=== PATIENT | female | born 1975 | race Two or more races ===

== ENCOUNTER 2021-01-11 17:12 | Emergency (ER) | payer MEDICAID ==
[~2021-01-11] VITALS: Ht 154.9 cm; Wt 77.0 kg
[2021-01-11 17:34] VITALS: BP 209/113
== END 2021-01-11 18:31 | disposition home or self-care (01) ==
LOC: ER 17:12
DX: S20.212A Contusion of left front wall of thorax, initial encounter (principal); E11.9 Type 2 diabetes mellitus without complications; E78.00 Pure hypercholesterolemia, unspecified; I10 Essential (primary) hypertension; W01.0XXA Fall on same level from slipping, tripping and stumbling without subsequent striking against object, initial encounter; Y93.9 Activity, unspecified; Y92.9 Unspecified place or not applicable; Z88.0 Allergy status to penicillin; Z89.9 Acquired absence of limb, unspecified; Z93.0 Tracheostomy status
CPT/HCPCS: 93005; 99283

== ENCOUNTER 2021-06-14 16:28 | Inpatient (IN) | payer MEDICAID ==
[~2021-06-14] VITALS: Ht 154.9 cm; Wt 76.7 kg
[2021-06-14] MEDS ORDERED: VANCOMYCIN 1 G PREMIX 200 ML IV ONE (17:30)
[2021-06-14] MEDS ORDERED: PIPERACILLIN/TAZ 3.375G PREMIX 50 ML IV ONE (17:30)
[2021-06-14 17:45] LABS: BASOPHILS % 0.2 % (0.0-2.0); EOSINOPHILS % 0.2 % (0.0-5.0); HEMATOCRIT. 26.3 % (36.0-48.0); LYMPHOCYTES % 14.9 % (20.0-50.0); MEAN CORPUSCULAR HEMOGLOBIN 34.8 pg (28.0-32.0); MEAN CORPUSCULAR VOLUME 102.4 fL (81.0-99.0); MEAN PLATELET VOLUME 7.5 fl (7.4-10.4); NEUTROPHILS % 75.7 % (40.0-76.0); PLATELET 210 x1000/uL (130-400); RED BLOOD CELL COUNT 2.57 mill/uL (4.2-5.4); RED CELL DISTRIBUTION WIDTH 13.1 % (11.6-14.6)
[2021-06-14 17:50] LABS: CHLORIDE 103 mEq/L (98-107)
[2021-06-14 17:53] LABS: INR 1.2; PROTHROMBIN TIME 12.4 sec (9.6-11.0)
[2021-06-14] MEDS ORDERED: POTASSIUM CHLORIDE 20MEQ TABLET SR PO NR (18:30)
[2021-06-14] MEDS ORDERED: SODIUM CHLORIDE 0.9% 1000ML BAG (SEPSIS BOLUS) IV ONE (20:00)
[2021-06-14] MEDS ORDERED: SODIUM CHLORIDE 0.9% IV SCH (20:15)
[2021-06-14] MEDS ORDERED: HYDROCODONE/ACETAMINOPHEN 5/325MG TABLET PO PRN (23:00)
[2021-06-14] MEDS ORDERED: DEXTROSE 50% WATER 50ML SYRINGE IV PRN (23:00)
[2021-06-14] MEDS ORDERED: NALOXONE HCL 0.4MG/ML VIAL IV PRN (23:15)
[2021-06-14 23:28] VITALS: BP 127/85
[2021-06-14] MEDS ORDERED: PNEUMOCOCCAL 23-VAL P-SAC VAC 0.5 ML IM ONE (23:30)
[2021-06-15] VITALS (7 sets, daily range): BP systolic 105–126; BP diastolic 61–83
[2021-06-15] MEDS ORDERED: AMLO2.5T45 MT
[2021-06-15] MEDS ORDERED: METO-539 PO
[2021-06-15] MEDS ORDERED: ASPI-1497 PO
[2021-06-15] MEDS ORDERED: BENA10TA74 PO
[2021-06-15] MEDS ORDERED: SIMV5TAB58 MT
[2021-06-15] MEDS ORDERED: GABA-529 MT
[2021-06-15] MEDS ORDERED: VANCOMYCIN 1 G PREMIX 200 ML IV SCH ×2 (02:30→12:00)
[2021-06-15] MEDS: PIPERACILLIN/TAZOBACTAM 3.375 G in DEXTROSE 5% WATER 50 ML IV SCH ×3 (05:44→22:32)
[2021-06-15] MEDS ORDERED: INFLUENZA VACCINE 05/PF 0.5 ML SYRINGE IM ONE (06:00)
[2021-06-15] MEDS: BLOOD SUGAR DIAGNOSTIC STRIP TEST SCH ×4 (06:29→20:02)
[2021-06-15] MEDS: INSULIN LISPRO 100 UNITS/ML SUBCUT SCH ×4 (06:29→20:02)
[2021-06-15 06:49] LABS: BASOPHILS % 0.4 % (0.0-2.0); EOSINOPHILS % 0.9 % (0.0-5.0); HEMATOCRIT. 24.8 % (36.0-48.0); HEMOGLOBIN. 8.4 g/dL (12.0-16.0); LYMPHOCYTES % 19.3 % (20.0-50.0); MEAN CORPUSCULAR HEMOGLOBIN 35.4 pg (28.0-32.0); MEAN CORPUSCULAR VOLUME 104.9 fL (81.0-99.0); MONOCYTES % 9.7 % (2.0-8.0); NEUTROPHILS % 69.7 % (40.0-76.0); PLATELET 171 x1000/uL (130-400); RED BLOOD CELL COUNT 2.37 mill/uL (4.2-5.4); RED CELL DISTRIBUTION WIDTH 13.3 % (11.6-14.6)
[2021-06-15] MEDS: AMLODIPINE 10MG TABLET PO SCH (08:57)
[2021-06-15] MEDS: ASPIRIN 81MG TABLET PO SCH (08:57)
[2021-06-15] MEDS: GABAPENTIN 300MG CAPSULE PO SCH ×3 (08:58→16:47)
[2021-06-15] MEDS: METOPROLOL TARTRATE 50MG TABLET PO SCH ×2 (08:58→16:43)
[2021-06-15] MEDS ORDERED: PNEUMOCOCCAL 23-VAL P-SAC VAC 0.5 ML IM ONE (09:00)
[2021-06-15] MEDS ORDERED: LIDOCAINE HCL 1% 20ML VIAL (Pyxis) INJ ONE (09:23)
[2021-06-15] MEDS: VANCOMYCIN 750 MG PREMIX 150 ML IV SCH (12:34)
[2021-06-15] MEDS ORDERED: IOHEXOL-350 100 ML BOTTLE ONE (17:10)
[2021-06-15] MEDS: ATORVASTATIN CALCIUM 40MG TABLET PO SCH (20:16)
[2021-06-16 04:00] VITALS: BP 91/49
[2021-06-16] MEDS: VANCOMYCIN 750 MG PREMIX 150 ML IV SCH (04:09)
[2021-06-16] MEDS: PIPERACILLIN/TAZOBACTAM 3.375 G in DEXTROSE 5% WATER 50 ML IV SCH ×3 (05:37→21:02)
[2021-06-16] MEDS: BLOOD SUGAR DIAGNOSTIC STRIP TEST SCH ×4 (05:57→20:59)
[2021-06-16] MEDS: INSULIN LISPRO 100 UNITS/ML SUBCUT SCH ×4 (06:15→21:00)
[2021-06-16 08:00] VITALS: BP 94/62
[2021-06-16] MEDS: AMLODIPINE 10MG TABLET PO SCH (08:30)
[2021-06-16] MEDS: ASPIRIN 81MG TABLET PO SCH (08:30)
[2021-06-16] MEDS: METOPROLOL TARTRATE 50MG TABLET PO SCH ×2 (08:30→17:09)
[2021-06-16] MEDS: GABAPENTIN 300MG CAPSULE PO SCH ×3 (08:30→17:09)
[2021-06-16 12:00] VITALS: BP 103/58
[2021-06-16 16:00] VITALS: BP 121/67
[2021-06-16 17:32] LABS: CLARITY URINE CLOUDY (CLEAR); COLOR URINE YELLOW (YELLOW); KETONES URINE NEGATIVE (NEGATIVE); LEUKOCYTE ESTERASE URINE 3+ (NEGATIVE); NITRITE URINE NEGATIVE (NEGATIVE); OCCULT BLOOD URINE TRACE (NEGATIVE); PH URINE 6.5 (4.5-8.0); PROTEIN URINE TRACE (NEGATIVE); SPECIFIC GRAVITY URINE 1.016 (1.005-1.030); UROBILINOGEN URINE 0.2 E.U./dL (0.2-1.0)
[2021-06-16 20:00] VITALS: BP 137/80
[2021-06-16] MEDS ORDERED: POTASSIUM CHLORIDE 20MEQ TABLET SR PO NR (20:00)
[2021-06-16] MEDS: ATORVASTATIN CALCIUM 40MG TABLET PO SCH (21:01)
[2021-06-17] VITALS: BP 99/60
[2021-06-17] MEDS: VANCOMYCIN 750 MG PREMIX 150 ML IV SCH ×3 (00:08→23:41)
[2021-06-17 04:00] VITALS: BP 111/59
[2021-06-17] MEDS: PIPERACILLIN/TAZOBACTAM 3.375 G in DEXTROSE 5% WATER 50 ML IV SCH ×3 (05:12→21:11)
[2021-06-17] MEDS: BLOOD SUGAR DIAGNOSTIC STRIP TEST SCH ×4 (05:42→21:10)
[2021-06-17] MEDS: INSULIN LISPRO 100 UNITS/ML SUBCUT SCH ×4 (06:13→21:00)
[2021-06-17 08:00] VITALS: BP 143/92
[2021-06-17] MEDS: ASPIRIN 81MG TABLET PO SCH (09:34)
[2021-06-17] MEDS: METOPROLOL TARTRATE 50MG TABLET PO SCH ×2 (09:35→17:23)
[2021-06-17] MEDS: GABAPENTIN 300MG CAPSULE PO SCH ×3 (09:35→17:23)
[2021-06-17] MEDS: AMLODIPINE 10MG TABLET PO SCH (09:36)
[2021-06-17 12:00] VITALS: BP 124/68
[2021-06-17 14:42] LABS: TOTAL IRON BINDING CAPACITY 282 ug/dL (250-450)
[2021-06-17 16:00] VITALS: BP 139/82
[2021-06-17 20:00] VITALS: BP 103/58
[2021-06-17] MEDS: ATORVASTATIN CALCIUM 40MG TABLET PO SCH (21:10)
[2021-06-18] VITALS: BP 103/57
[2021-06-18 04:00] VITALS: BP 106/59
[2021-06-18] MEDS: PIPERACILLIN/TAZOBACTAM 3.375 G in DEXTROSE 5% WATER 50 ML IV SCH ×3 (05:28→20:31)
[2021-06-18] MEDS: BLOOD SUGAR DIAGNOSTIC STRIP TEST SCH ×4 (07:20→20:32)
[2021-06-18] MEDS: INSULIN LISPRO 100 UNITS/ML SUBCUT SCH ×4 (07:50→20:33)
[2021-06-18 08:00] VITALS: BP 113/72
[2021-06-18] MEDS: ASPIRIN 81MG TABLET PO SCH (10:10)
[2021-06-18] MEDS: AMLODIPINE 10MG TABLET PO SCH (10:11)
[2021-06-18] MEDS: METOPROLOL TARTRATE 50MG TABLET PO SCH ×2 (10:11→19:10)
[2021-06-18] MEDS: GABAPENTIN 300MG CAPSULE PO SCH ×3 (10:11→19:09)
[2021-06-18 12:00] VITALS: BP 138/90
[2021-06-18] MEDS: VANCOMYCIN 750 MG PREMIX 150 ML IV SCH ×2 (13:56→23:16)
[2021-06-18 16:00] VITALS: BP 110/66
[2021-06-18 20:00] VITALS: BP 116/76
[2021-06-18] MEDS: ATORVASTATIN CALCIUM 40MG TABLET PO SCH (20:31)
[2021-06-19] VITALS: BP 97/63
[2021-06-19 04:00] VITALS: BP 104/66
[2021-06-19] MEDS: BLOOD SUGAR DIAGNOSTIC STRIP TEST SCH ×2 (06:25→11:30)
[2021-06-19] MEDS: INSULIN LISPRO 100 UNITS/ML SUBCUT SCH ×2 (06:25→11:32)
[2021-06-19 08:00] VITALS: BP 139/98
[2021-06-19] MEDS: AMLODIPINE 10MG TABLET PO SCH (09:06)
[2021-06-19] MEDS: ASPIRIN 81MG TABLET PO SCH (09:07)
[2021-06-19] MEDS: GABAPENTIN 300MG CAPSULE PO SCH ×2 (09:07→12:39)
[2021-06-19] MEDS: METOPROLOL TARTRATE 50MG TABLET PO SCH (09:07)
[2021-06-19 12:00] VITALS: BP 140/94
[2021-06-19 14:30] VITALS: BP_SYST 140; BP_SYST 150; BP_DIAS 71; BP_DIAS 84
[2021-06-19] MEDS ORDERED: VANCOMYCIN 1 G PREMIX 200 ML IV SCH (18:00)
== END 2021-06-19 15:52 | disposition home health service (06) | DRG 344 ==
LOC: ER 16:28 → 7EST 19:59 → EDBEDREQTM 20:02 → EDBEDREQ 20:02 → ENRESERV 20:12 → 6EST 06-17 18:33
PROVIDERS: ADMIT Internal Medicine; ATTEND Internal Medicine
PROC: 02HV33Z Insertion of Infusion Device into Superior Vena Cava, Percutaneous Approach (ICD-10-PCS; principal; 2021-06-15)
PROC: B548ZZA Ultrasonography of Superior Vena Cava, Guidance (ICD-10-PCS; 2021-06-15)
PROC: B5181ZA Fluoroscopy of Superior Vena Cava using Low Osmolar Contrast, Guidance (ICD-10-PCS; 2021-06-15)
DX: E11.69 Type 2 diabetes mellitus with other specified complication (principal); M86.172 Other acute osteomyelitis, left ankle and foot; N17.0 Acute kidney failure with tubular necrosis; E44.0 Moderate protein-calorie malnutrition; E11.621 Type 2 diabetes mellitus with foot ulcer; E11.22 Type 2 diabetes mellitus with diabetic chronic kidney disease; L97.529 Non-pressure chronic ulcer of other part of left foot with unspecified severity; B95.62 Methicillin resistant Staphylococcus aureus infection as the cause of diseases classified elsewhere; D64.9 Anemia, unspecified; E11.51 Type 2 diabetes mellitus with diabetic peripheral angiopathy without gangrene; E66.9 Obesity, unspecified; E78.00 Pure hypercholesterolemia, unspecified; Z20.822 Contact with and (suspected) exposure to COVID-19; E78.5 Hyperlipidemia, unspecified; E87.6 Hypokalemia; I12.9 Hypertensive chronic kidney disease with stage 1 through stage 4 chronic kidney disease, or unspecified chronic kidney disease; N18.9 Chronic kidney disease, unspecified; Z79.4 Long term (current) use of insulin; Z79.82 Long term (current) use of aspirin; Z91.19 Patient's noncompliance with other medical treatment and regimen; Z89.422 Acquired absence of other left toe(s); Z88.0 Allergy status to penicillin; Z68.31 Body mass index [BMI] 31.0-31.9, adult; Z79.899 Other long term (current) drug therapy
CPT/HCPCS: 36415; 36573; 71045; 73630; 75635; 80048; 80053; 80061; 80202; 81003; 82728; 82962; 83036; 83540; 83550; 83605; 84145; 85025; 86850; 86900; 87070; 87186; 87426; 90686; 90732; 93005; 93923; 97161; 99291; C1725; J1815; J2543; J3370; J3490; J7060; Q9967

== ENCOUNTER 2021-06-25 13:34 | Emergency (ER) | payer MEDICAID ==
[~2021-06-25] VITALS: Ht 165.1 cm; Wt 75.0 kg
[~2021-06-25 13:34] MED LIST: AMLO2.5T45 MT; ASPI-1497 PO; BENA10TA74 PO; GABA-529 MT; METO-539 PO; SIMV5TAB58 MT
[2021-06-25 13:49] VITALS: BP 134/91
== END 2021-06-25 22:10 | disposition left against medical advice (07) ==
LOC: ER 13:34
DX: Z53.21 Procedure and treatment not carried out due to patient leaving prior to being seen by health care provider (principal)

== ENCOUNTER 2021-06-30 10:03 | Emergency (ER) | payer MEDICAID ==
[~2021-06-30] VITALS: Ht 160 cm; Wt 73.0 kg
[2021-06-30] MEDS ORDERED: VANCOMYCIN 1 G PREMIX 200 ML IV SCH (14:30)
[2021-06-30 17:27] VITALS: BP 129/84
== END 2021-06-30 17:28 | disposition home or self-care (01) ==
LOC: ER 10:15
DX: T82.524A Displacement of infusion catheter, initial encounter (principal); Y84.8 Other medical procedures as the cause of abnormal reaction of the patient, or of later complication, without mention of misadventure at the time of the procedure; M86.9 Osteomyelitis, unspecified; Y92.9 Unspecified place or not applicable; E11.9 Type 2 diabetes mellitus without complications; I10 Essential (primary) hypertension; Z88.0 Allergy status to penicillin; Z93.0 Tracheostomy status
CPT/HCPCS: 96365; 99284; J3370

== ENCOUNTER 2021-07-02 09:05 | Emergency (ER) | payer MEDICAID ==
[~2021-07-02] VITALS: Ht 160 cm; Wt 73.0 kg
[2021-07-02] MEDS ORDERED: LIDOCAINE HCL 1% 30ML VIAL (10MG/ML) ONE (13:31)
[2021-07-02 14:35] VITALS: BP 142/96
== END 2021-07-02 14:36 | disposition home or self-care (01) ==
LOC: ER 09:05
DX: Z46.82 Encounter for fitting and adjustment of non-vascular catheter (principal); I10 Essential (primary) hypertension; E11.9 Type 2 diabetes mellitus without complications; E78.00 Pure hypercholesterolemia, unspecified; Z93.0 Tracheostomy status; Z88.0 Allergy status to penicillin
CPT/HCPCS: 36573; 81025; 87426; 99284; C1725; J3490; Z7610

== ENCOUNTER 2021-08-07 21:04 | Inpatient (IN) | payer MEDICAID ==
[~2021-08-07] VITALS: Ht 157.5 cm; Wt 82.1 kg
[2021-08-07 23:08] LABS: BASOPHILS % 0.5 % (0.0-2.0); CHLORIDE 103 mEq/L (98-107); HEMOGLOBIN. 10.3 g/dL (12.0-16.0); LYMPHOCYTES % 33.3 % (20.0-50.0); MEAN CORPUSCULAR VOLUME 105.1 fL (81.0-99.0); MEAN PLATELET VOLUME 7.5 fl (7.4-10.4); NEUTROPHILS % 58.2 % (40.0-76.0); PLATELET 232 x1000/uL (130-400); RED BLOOD CELL COUNT 2.95 mill/uL (4.2-5.4); RED CELL DISTRIBUTION WIDTH 16.1 % (11.6-14.6)
[2021-08-07] MEDS ORDERED: POTASSIUM BICARB/CIT ACID 25 MEQ TABLET.EFF PO ONE (23:30)
[2021-08-07] MEDS ORDERED: CEFEPIME 1,000 MG in DEXTROSE 5% WATER 50 ML IV SCH (23:30)
[2021-08-07] MEDS ORDERED: KCL 10MEQ/50ML PREMIX 50 ML IV ONE (23:30)
[2021-08-07] MEDS ORDERED: MAGNESIUM 2 G PREMIX 50 ML IV ONE (23:30)
[2021-08-07] MEDS ORDERED: SODIUM CHLORIDE 0.9% 1000ML BAG (SEPSIS BOLUS) IV ONE (23:30)
[2021-08-08] MEDS ORDERED: KCL 10MEQ/50ML PREMIX 50 ML IV SCH (01:00)
[2021-08-08 01:42] LABS: CLARITY URINE CLOUDY (CLEAR); COLOR URINE YELLOW (YELLOW); KETONES URINE TRACE (NEGATIVE); LEUKOCYTE ESTERASE URINE 1+ (NEGATIVE); NITRITE URINE NEGATIVE (NEGATIVE); OCCULT BLOOD URINE TRACE (NEGATIVE); PH URINE 5.5 (4.5-8.0); PROTEIN URINE 1+ (NEGATIVE); SPECIFIC GRAVITY URINE 1.021 (1.005-1.030); UROBILINOGEN URINE 0.2 E.U./dL (0.2-1.0)
[2021-08-08 03:30] VITALS: BP 92/62
[2021-08-08] MEDS ORDERED: ONDANSETRON HCL 4MG/2ML INJ IV PRN (04:45)
[2021-08-08] MEDS ORDERED: ZOLPIDEM TARTRATE 5MG TABLET PO PRN (04:45)
[2021-08-08] MEDS ORDERED: NALOXONE HCL 0.4MG/ML VIAL IV PRN (05:45)
[2021-08-08] MEDS: HYDROCODONE/ACETAMINOPHEN 5/325MG TABLET PO PRN ×2 (06:12→21:56)
[2021-08-08] MEDS: PANTOPRAZOLE 40MG DR TABLET PO SCH (06:14)
[2021-08-08 06:44] LABS: BASOPHILS % 0.3 % (0.0-2.0); EOSINOPHILS % 1.2 % (0.0-5.0); HEMATOCRIT. 29.5 % (36.0-48.0); HEMOGLOBIN. 10.1 g/dL (12.0-16.0); LYMPHOCYTES % 16.6 % (20.0-50.0); MEAN CORPUSCULAR VOLUME 105.1 fL (81.0-99.0); MEAN PLATELET VOLUME 7.5 fl (7.4-10.4); MONOCYTES % 5.2 % (2.0-8.0); NEUTROPHILS % 76.7 % (40.0-76.0); PLATELET 189 x1000/uL (130-400); RED BLOOD CELL COUNT 2.81 mill/uL (4.2-5.4); RED CELL DISTRIBUTION WIDTH 16.1 % (11.6-14.6)
[2021-08-08 08:00] VITALS: BP 100/59
[2021-08-08] MEDS ORDERED: POTASSIUM CHLORIDE 20MEQ TABLET SR PO SCH ×3 (10:00→16:00)
[2021-08-08] MEDS: GABAPENTIN 100MG CAPSULE PO SCH ×3 (10:08→17:50)
[2021-08-08] MEDS: ASPIRIN 81MG TABLET PO SCH (10:08)
[2021-08-08 12:00] VITALS: BP 99/59
[2021-08-08] MEDS ORDERED: MAGNESIUM 2 G PREMIX 50 ML IV NR (13:30)
[2021-08-08 16:00] VITALS: BP 90/49
[2021-08-08 20:00] VITALS: BP 109/65
[2021-08-08] MEDS: ATORVASTATIN CALCIUM 10MG TABLET PO SCH (21:27)
[2021-08-09] VITALS: BP 94/55
[2021-08-09 04:00] VITALS: BP 110/69
[2021-08-09] MEDS: PANTOPRAZOLE 40MG DR TABLET PO SCH (06:51)
[2021-08-09 07:29] LABS: BASOPHILS % 0.3 % (0.0-2.0); EOSINOPHILS % 2.5 % (0.0-5.0); HEMATOCRIT. 24.9 % (36.0-48.0); HEMOGLOBIN. 8.3 g/dL (12.0-16.0); LYMPHOCYTES % 22.7 % (20.0-50.0); MEAN CORPUSCULAR HEMOGLOBIN 35.5 pg (28.0-32.0); MEAN PLATELET VOLUME 7.6 fl (7.4-10.4); NEUTROPHILS % 69.5 % (40.0-76.0); PLATELET 157 x1000/uL (130-400); RED BLOOD CELL COUNT 2.35 mill/uL (4.2-5.4); RED CELL DISTRIBUTION WIDTH 16.1 % (11.6-14.6)
[2021-08-09 08:00] VITALS: BP 105/65
[2021-08-09 08:15] LABS: PHOSPHORUS 1.7 mg/dL (2.5-4.9)
[2021-08-09] MEDS: GABAPENTIN 100MG CAPSULE PO SCH ×3 (08:59→17:35)
[2021-08-09] MEDS: ASPIRIN 81MG TABLET PO SCH (08:59)
[2021-08-09 12:00] VITALS: BP 137/84
[2021-08-09] MEDS ORDERED: VANCOMYCIN 750 MG PREMIX 150 ML IV SCH (12:00)
[2021-08-09] MEDS ORDERED: MAGNESIUM 2 G PREMIX 50 ML IV NR (13:00)
[2021-08-09] MEDS ORDERED: POTASSIUM PHOS,M-BASIC-D-BASIC 20 MMOL in DEXT 5% WATER 243.3333 ML IV NR (13:00)
[2021-08-09] MEDS ORDERED: POTASSIUM-SODIUM PHOSPHATE POWDER PACKET PO NR (14:36)
[2021-08-09 16:00] VITALS: BP 119/65
[2021-08-09 20:00] VITALS: BP 150/100
[2021-08-09] MEDS: ATORVASTATIN CALCIUM 10MG TABLET PO SCH (20:56)
[2021-08-10] VITALS: BP 141/72
[2021-08-10 05:27] VITALS: BP 121/74
[2021-08-10 08:00] VITALS: BP_SYST 132; BP_DIAS 66; BP_DIAS 82
[2021-08-10] MEDS ORDERED: FAMOTIDINE 20MG TABLET PO SCH (09:00)
[2021-08-10] MEDS: GABAPENTIN 100MG CAPSULE PO SCH ×2 (10:00→15:08)
[2021-08-10] MEDS: ASPIRIN 81MG TABLET PO SCH (10:00)
[2021-08-10 11:25] VITALS: BP 137/80
[2021-08-10 11:53] LABS: HEMATOCRIT 25.4 % (36.0-48.0); HEMOGLOBIN 8.4 g/dL (12.0-16.0); MEAN CORPUSCULAR HEMOGLOBIN 35.8 pg (28.0-32.0); MEAN CORPUSCULAR VOLUME 107.7 fL (81.0-99.0); PLATELET 156 x1000/uL (130-400); RED BLOOD CELL COUNT 2.36 mill/uL (4.2-5.4); RED CELL DISTRIBUTION WIDTH 16.4 % (11.6-14.6)
[2021-08-10] MEDS ORDERED: VANCOMYCIN 1 G PREMIX 200 ML IV SCH (14:00)
[2021-08-10 14:44] VITALS: BP 137/80
== END 2021-08-10 16:15 | disposition home health service (06) | DRG 425 ==
LOC: ER 21:04 → 6WST 08-08 01:41 → EDBEDREQDT 08-08 01:43 → EDBEDREQTM 08-08 01:43 → EDBEDREQ 08-08 01:43 → ENRESERV 08-08 02:25
PROVIDERS: ADMIT Internal Medicine; ATTEND Internal Medicine
DX: E87.6 Hypokalemia (principal); N17.0 Acute kidney failure with tubular necrosis; E44.0 Moderate protein-calorie malnutrition; L97.509 Non-pressure chronic ulcer of other part of unspecified foot with unspecified severity; M86.9 Osteomyelitis, unspecified; E11.621 Type 2 diabetes mellitus with foot ulcer; D64.9 Anemia, unspecified; K52.9 Noninfective gastroenteritis and colitis, unspecified; E11.69 Type 2 diabetes mellitus with other specified complication; E66.9 Obesity, unspecified; E78.5 Hyperlipidemia, unspecified; E83.42 Hypomagnesemia; I10 Essential (primary) hypertension; Z79.899 Other long term (current) drug therapy; Z79.82 Long term (current) use of aspirin; Z71.3 Dietary counseling and surveillance; Z88.0 Allergy status to penicillin; Z68.33 Body mass index [BMI] 33.0-33.9, adult
CPT/HCPCS: 36415; 71045; 80048; 80053; 80202; 81003; 82962; 83605; 83735; 83880; 84100; 84145; 84484; 85025; 85027; 93005; 99285; J0692; J3370; J3475; J3480; J3490; J7030; J7060

== ENCOUNTER 2021-08-20 09:34 | Emergency (ER) | payer MEDICAID ==
[~2021-08-20] VITALS: Ht 152.4 cm; Wt 86.0 kg
[~2021-08-20 09:34] MED LIST changes: -AMLO2.5T45 MT; -BENA10TA74 PO; -METO-539 PO
[2021-08-20] MEDS ORDERED: VANCOMYCIN 1 G PREMIX 200 ML IV NR (10:30)
[2021-08-20] MEDS ORDERED: LIDOCAINE HCL 1% 10 MG/ML 10ML VIAL ONE (12:49)
[2021-08-20 14:06] VITALS: BP 138/78
== END 2021-08-20 15:40 | disposition home or self-care (01) ==
LOC: ER 09:34
DX: T82.524A Displacement of infusion catheter, initial encounter (principal); E11.9 Type 2 diabetes mellitus without complications; I10 Essential (primary) hypertension; E78.00 Pure hypercholesterolemia, unspecified; Z93.0 Tracheostomy status; Z88.0 Allergy status to penicillin; Z79.82 Long term (current) use of aspirin; Z20.822 Contact with and (suspected) exposure to COVID-19; Y83.8 Other surgical procedures as the cause of abnormal reaction of the patient, or of later complication, without mention of misadventure at the time of the procedure; Y92.018 Other place in single-family (private) house as the place of occurrence of the external cause
CPT/HCPCS: 76937; 87426; 99283; C1725; J3490

== ENCOUNTER 2022-05-30 12:24 | Inpatient (IN) | payer MEDICAID ==
[~2022-05-30] VITALS: Ht 154.9 cm; Wt 52.2 kg
[2022-05-30 15:36] LABS: BASOPHILS % 0.7 % (0.0-2.0); EOSINOPHILS % 2.9 % (0.0-5.0); HEMATOCRIT. 30.6 % (36.0-48.0); HEMOGLOBIN. 10.5 g/dL (12.0-16.0); LYMPHOCYTES % 23.2 % (20.0-50.0); MEAN CORPUSCULAR HEMOGLOBIN 35.3 pg (28.0-32.0); MEAN CORPUSCULAR VOLUME 102.8 fL (81.0-99.0); MEAN PLATELET VOLUME 6.6 fl (7.4-10.4); MONOCYTES % 4.9 % (2.0-8.0); NEUTROPHILS % 68.3 % (40.0-76.0); PLATELET 479 x1000/uL (130-400); RED BLOOD CELL COUNT 2.98 mill/uL (4.2-5.4); RED CELL DISTRIBUTION WIDTH 13.7 % (11.6-14.6)
[2022-05-30 16:03] LABS: CHLORIDE 95 mEq/L (98-107)
[2022-05-30] MEDS ORDERED: PIPERACILLIN/TAZ 3.375G PREMIX 50 ML IV ONE (17:15)
[2022-05-30] MEDS ORDERED: VANCOMYCIN 1G PREMIX 200 ML IV SCH (17:15)
[2022-05-30] MEDS ORDERED: PIPERACILLIN/TAZ 3.375G PREMIX 50 ML IV NR (20:15)
[2022-05-30 20:20] VITALS: BP 142/97
[2022-05-30 22:00] VITALS: BP 142/97
[2022-05-31] VITALS: BP 139/81
[2022-05-31] MEDS ORDERED: DEXTROSE 50% WATER 50ML SYRINGE IV PRN
[2022-05-31] MEDS: HYDROCODONE/ACETAMINOPHEN 10/325MG TABLET PO PRN (02:14)
[2022-05-31 04:00] VITALS: BP 100/55
[2022-05-31] MEDS: PIPERACILLIN/TAZOBACTAM 3.375 G in DEXTROSE 5% WATER 50 ML IV SCH ×3 (05:27→21:39)
[2022-05-31] MEDS: BLOOD SUGAR DIAGNOSTIC STRIP TEST SCH ×4 (06:25→21:00)
[2022-05-31 07:29] LABS: BASOPHILS % 0.5 % (0.0-2.0); EOSINOPHILS % 2.2 % (0.0-5.0); HEMATOCRIT. 27.2 % (36.0-48.0); HEMOGLOBIN. 9.3 g/dL (12.0-16.0); LYMPHOCYTES % 17.3 % (20.0-50.0); MEAN CORPUSCULAR HEMOGLOBIN 35.4 pg (28.0-32.0); MEAN CORPUSCULAR VOLUME 103.3 fL (81.0-99.0); PLATELET 398 x1000/uL (130-400); RED BLOOD CELL COUNT 2.64 mill/uL (4.2-5.4); RED CELL DISTRIBUTION WIDTH 13.8 % (11.6-14.6)
[2022-05-31 07:42] LABS: CHLORIDE 100 mEq/L (98-107)
[2022-05-31] MEDS: INSULIN LISPRO 100 UNITS/ML SUBCUT SCH ×4 (07:47→21:58)
[2022-05-31 07:50] LABS: HDL CHOLESTEROL 41 mg/dL (40-59); LDL CHOLESTEROL 88 mg/dL (5-100)
[2022-05-31 08:00] VITALS: BP 108/71
[2022-05-31] MEDS: METOPROLOL SUCCINATE 50MG ER TABLET PO SCH ×2 (08:48→21:00)
[2022-05-31] MEDS: GABAPENTIN 100MG CAPSULE PO SCH ×3 (08:48→17:32)
[2022-05-31] MEDS: AMLODIPINE 10MG TABLET PO SCH (08:49)
[2022-05-31] MEDS ORDERED: BENAZEPRIL 10MG TABLET PO SCH (09:00)
[2022-05-31] MEDS ORDERED: LISINOPRIL 20MG TABLET PO SCH (09:00)
[2022-05-31 12:00] VITALS: BP 104/62
[2022-05-31] MEDS: VANCOMYCIN 1G PREMIX 200 ML IV SCH (13:23)
[2022-05-31 16:00] VITALS: BP 108/71
[2022-05-31 20:00] VITALS: BP 94/56
[2022-05-31] MEDS ORDERED: ATORVASTATIN CALCIUM 20MG TABLET PO SCH (21:00)
[2022-05-31] MEDS ORDERED: NON FORMULARY PATIENT HOME MED PO SCH (21:00)
[2022-05-31] MEDS: ATORVASTATIN CALCIUM 10MG TABLET PO SCH (21:39)
[2022-06-01] VITALS: BP 117/67
[2022-06-01 04:00] VITALS: BP 113/63
[2022-06-01] MEDS: VANCOMYCIN 1G PREMIX 200 ML IV SCH (05:10)
[2022-06-01] MEDS: PIPERACILLIN/TAZOBACTAM 3.375 G in DEXTROSE 5% WATER 50 ML IV SCH ×3 (05:11→20:49)
[2022-06-01] MEDS: BLOOD SUGAR DIAGNOSTIC STRIP TEST SCH ×4 (06:25→21:00)
[2022-06-01 08:00] VITALS: BP 118/72
[2022-06-01] MEDS: AMLODIPINE 10MG TABLET PO SCH (08:31)
[2022-06-01] MEDS: GABAPENTIN 100MG CAPSULE PO SCH ×3 (08:31→17:01)
[2022-06-01] MEDS: METOPROLOL SUCCINATE 50MG ER TABLET PO SCH ×3 (08:32→20:59)
[2022-06-01] MEDS: INSULIN LISPRO 100 UNITS/ML SUBCUT SCH ×4 (08:37→20:59)
[2022-06-01 12:00] VITALS: BP_SYST 108; BP_SYST 96; BP_DIAS 67; BP_DIAS 70
[2022-06-01 16:00] VITALS: BP 111/74
[2022-06-01] MEDS ORDERED: NALOXONE HCL 0.4MG/ML VIAL IV PRN (19:15)
[2022-06-01 20:00] VITALS: BP 102/62
[2022-06-01] MEDS: ATORVASTATIN CALCIUM 10MG TABLET PO SCH (20:49)
[2022-06-01] MEDS: HYDROCODONE/ACETAMINOPHEN 10/325MG TABLET PO PRN (21:01)
[2022-06-02] VITALS: BP 96/56
[2022-06-02] MEDS: VANCOMYCIN 1G PREMIX 200 ML IV SCH (01:34)
[2022-06-02] MEDS: HYDROCODONE/ACETAMINOPHEN 10/325MG TABLET PO PRN ×3 (01:40→19:07)
[2022-06-02 04:00] VITALS: BP 108/55
[2022-06-02] MEDS: PIPERACILLIN/TAZOBACTAM 3.375 G in DEXTROSE 5% WATER 50 ML IV SCH ×2 (05:59→13:56)
[2022-06-02] MEDS: BLOOD SUGAR DIAGNOSTIC STRIP TEST SCH ×4 (05:59→20:19)
[2022-06-02] MEDS: INSULIN LISPRO 100 UNITS/ML SUBCUT SCH ×4 (07:50→20:20)
[2022-06-02 08:00] VITALS: BP 103/66
[2022-06-02 08:41] LABS: CHLORIDE 105 mEq/L (98-107)
[2022-06-02 08:43] LABS: BASOPHILS % 0.5 % (0.0-2.0); EOSINOPHILS % 4.3 % (0.0-5.0); HEMOGLOBIN. 8.7 g/dL (12.0-16.0); LYMPHOCYTES % 32.5 % (20.0-50.0); MEAN CORPUSCULAR HEMOGLOBIN 34.7 pg (28.0-32.0); MEAN PLATELET VOLUME 6.6 fl (7.4-10.4); MONOCYTES % 6.1 % (2.0-8.0); NEUTROPHILS % 56.6 % (40.0-76.0); PLATELET 347 x1000/uL (130-400); RED CELL DISTRIBUTION WIDTH 13.5 % (11.6-14.6)
[2022-06-02] MEDS: GABAPENTIN 100MG CAPSULE PO SCH ×3 (09:57→17:30)
[2022-06-02] MEDS: AMLODIPINE 10MG TABLET PO SCH (09:58)
[2022-06-02] MEDS: METOPROLOL SUCCINATE 50MG ER TABLET PO SCH ×2 (09:58→20:34)
[2022-06-02 12:00] VITALS: BP 112/62
[2022-06-02] MEDS ORDERED: CEFTRIAXONE 2 G PREMIX 50 ML IV SCH (15:15)
[2022-06-02 16:00] VITALS: BP 97/68
[2022-06-02] MEDS: CEFTRIAXONE 2 G in DEXTROSE 5% WATER 50 ML IV SCH (19:07)
[2022-06-02] MEDS: VANCOMYCIN 500MG PREMIX 100 ML IV SCH (20:20)
[2022-06-02] MEDS: ATORVASTATIN CALCIUM 10MG TABLET PO SCH (20:21)
[2022-06-02 21:00] VITALS: BP 92/55
[2022-06-03 04:00] VITALS: BP 125/84
[2022-06-03] MEDS: BLOOD SUGAR DIAGNOSTIC STRIP TEST SCH ×4 (07:48→21:00)
[2022-06-03] MEDS: INSULIN LISPRO 100 UNITS/ML SUBCUT SCH ×4 (07:49→21:00)
[2022-06-03 08:00] VITALS: BP 123/82
[2022-06-03 08:06] LABS: BASOPHILS % 0.6 % (0.0-2.0); EOSINOPHILS % 3.5 % (0.0-5.0); HEMATOCRIT. 28.3 % (36.0-48.0); HEMOGLOBIN. 9.3 g/dL (12.0-16.0); LYMPHOCYTES % 22.7 % (20.0-50.0); MEAN CORPUSCULAR HEMOGLOBIN 34.5 pg (28.0-32.0); MEAN CORPUSCULAR VOLUME 104.9 fL (81.0-99.0); MONOCYTES % 5.7 % (2.0-8.0); NEUTROPHILS % 67.5 % (40.0-76.0); PLATELET 368 x1000/uL (130-400); RED CELL DISTRIBUTION WIDTH 13.6 % (11.6-14.6)
[2022-06-03] MEDS: VANCOMYCIN 500MG PREMIX 100 ML IV SCH ×2 (09:35→21:09)
[2022-06-03] MEDS: DEXT 5%/0.45% NACL 1000ML 1,000 ML IV SCH (09:36)
[2022-06-03] MEDS: GABAPENTIN 100MG CAPSULE PO SCH ×3 (09:36→17:00)
[2022-06-03] MEDS: AMLODIPINE 10MG TABLET PO SCH (09:37)
[2022-06-03] MEDS: METOPROLOL SUCCINATE 50MG ER TABLET PO SCH ×2 (09:37→21:09)
[2022-06-03] MEDS ORDERED: LIDOCAINE HCL 1% 50ML VIAL (10MG/ML) ONE (11:14)
[2022-06-03] MEDS ORDERED: GENTAMICIN SULF 40MG/ML 2ML VIAL ONE (11:15)
[2022-06-03] MEDS ORDERED: POLYMYXIN B SULFATE 500000 UNITS/VIAL ONE ×2 (11:15→15:32)
[2022-06-03] MEDS ORDERED: BUPIVACAINE HCL/PF 0.5% (5MG/ML) 10ML ONE (11:16)
[2022-06-03] MEDS ORDERED: VANCOMYCIN HCL 1 GM/VIAL ONE (11:19)
[2022-06-03 12:00] VITALS: BP 98/56
[2022-06-03] MEDS ORDERED: BACITRACIN 15GM TUBE TOP ONE (13:39)
[2022-06-03 16:00] VITALS: BP 108/72
[2022-06-03] MEDS: CEFTRIAXONE 2 G in DEXTROSE 5% WATER 50 ML IV SCH (17:00)
[2022-06-03] MEDS ORDERED: FENTANYL CITRATE/PF 50MCG/ML 2ML VIAL ONE (17:30)
[2022-06-03] MEDS ORDERED: PROPOFOL 200MG/20ML VIAL IV ONE (17:30)
[2022-06-03] MEDS ORDERED: LIDOCAINE HCL 2% 5ML SYRINGE IV ONE (17:32)
[2022-06-03] MEDS ORDERED: CEFAZOLIN SODIUM 1000MG/VIAL ONE (17:41)
[2022-06-03] MEDS ORDERED: MIDAZOLAM HCL 2 MG/2 ML VIAL ONE (17:42)
[2022-06-03] MEDS ORDERED: MEPERIDINE HCL/PF 25MG/ML CPJ IV PRN (18:15)
[2022-06-03] MEDS ORDERED: ONDANSETRON HCL 4MG/2ML INJ IV PRN ×2 (18:15)
[2022-06-03 20:00] VITALS: BP 128/84
[2022-06-03] MEDS: ATORVASTATIN CALCIUM 10MG TABLET PO SCH (21:09)
[2022-06-03] MEDS: HYDROMORPHONE HCL/PF 2MG/ML CPJ IV PRN ×4 (21:10→23:38)
[2022-06-03] MEDS: HYDROCODONE/ACETAMINOPHEN 10/325MG TABLET PO PRN (22:18)
[2022-06-04] VITALS: BP 94/60
[2022-06-04 04:00] VITALS: BP 99/66
[2022-06-04] MEDS: DEXT 5%/0.45% NACL 1000ML 1,000 ML IV SCH (05:30)
[2022-06-04 07:23] LABS: HEMATOCRIT. 29.5 % (36.0-48.0); HEMOGLOBIN. 9.7 g/dL (12.0-16.0); MEAN CORPUSCULAR HEMOGLOBIN 34.7 pg (28.0-32.0); MEAN CORPUSCULAR VOLUME 105.9 fL (81.0-99.0); MEAN PLATELET VOLUME 6.7 fl (7.4-10.4); PLATELET 302 x1000/uL (130-400); RED BLOOD CELL COUNT 2.79 mill/uL (4.2-5.4)
[2022-06-04 08:00] VITALS: BP_SYST 100; BP_SYST 96; BP_DIAS 52
[2022-06-04] MEDS: AMLODIPINE 10MG TABLET PO SCH (09:00)
[2022-06-04] MEDS: METOPROLOL SUCCINATE 50MG ER TABLET PO SCH ×2 (09:00→20:46)
[2022-06-04] MEDS: VANCOMYCIN 500MG PREMIX 100 ML IV SCH (09:24)
[2022-06-04] MEDS: HYDROCODONE/ACETAMINOPHEN 10/325MG TABLET PO PRN ×2 (09:24→20:45)
[2022-06-04] MEDS: GABAPENTIN 100MG CAPSULE PO SCH ×3 (09:24→17:39)
[2022-06-04 12:00] VITALS: BP 115/71
[2022-06-04 12:07] LABS: PLATELET ESTIMATE NORMAL
[2022-06-04] MEDS: BLOOD SUGAR DIAGNOSTIC STRIP TEST SCH ×3 (12:14→20:47)
[2022-06-04] MEDS: INSULIN LISPRO 100 UNITS/ML SUBCUT SCH ×3 (13:01→20:46)
[2022-06-04 15:56] VITALS: BP_SYST 124; BP_SYST 92; BP_DIAS 66; BP_DIAS 70
[2022-06-04] MEDS: CEFTRIAXONE 2 G in DEXTROSE 5% WATER 50 ML IV SCH (17:39)
[2022-06-04] MEDS: ATORVASTATIN CALCIUM 10MG TABLET PO SCH (20:46)
[2022-06-05] VITALS: BP 110/74
[2022-06-05] MEDS: DEXT 5%/0.45% NACL 1000ML 1,000 ML IV SCH ×2 (00:17→21:56)
[2022-06-05 04:00] VITALS: BP 107/62
[2022-06-05] MEDS: VANCOMYCIN 750MG PREMIX 150 ML IV SCH (05:24)
[2022-06-05] MEDS: BLOOD SUGAR DIAGNOSTIC STRIP TEST SCH ×4 (05:24→21:00)
[2022-06-05] MEDS: INSULIN LISPRO 100 UNITS/ML SUBCUT SCH ×4 (06:53→21:00)
[2022-06-05 08:00] VITALS: BP 106/50
[2022-06-05] MEDS: METOPROLOL SUCCINATE 50MG ER TABLET PO SCH ×2 (09:00→21:56)
[2022-06-05] MEDS: AMLODIPINE 10MG TABLET PO SCH (09:00)
[2022-06-05] MEDS: GABAPENTIN 100MG CAPSULE PO SCH ×3 (09:44→18:37)
[2022-06-05 12:00] VITALS: BP 128/79
[2022-06-05] MEDS: HYDROCODONE/ACETAMINOPHEN 10/325MG TABLET PO PRN (12:30)
[2022-06-05 16:00] VITALS: BP 102/55
[2022-06-05] MEDS: CEFTRIAXONE 2 G in DEXTROSE 5% WATER 50 ML IV SCH (17:00)
[2022-06-05 20:00] VITALS: BP 110/69
[2022-06-05] MEDS: ATORVASTATIN CALCIUM 10MG TABLET PO SCH (21:56)
[2022-06-06] VITALS: BP 133/76
[2022-06-06 04:00] VITALS: BP 122/67
[2022-06-06] MEDS: VANCOMYCIN 750MG PREMIX 150 ML IV SCH (05:01)
[2022-06-06] MEDS: HYDROCODONE/ACETAMINOPHEN 10/325MG TABLET PO PRN ×2 (07:07→22:05)
[2022-06-06] MEDS: BLOOD SUGAR DIAGNOSTIC STRIP TEST SCH ×4 (07:20→20:36)
[2022-06-06] MEDS: INSULIN LISPRO 100 UNITS/ML SUBCUT SCH ×4 (07:50→20:35)
[2022-06-06] MEDS: GABAPENTIN 100MG CAPSULE PO SCH ×3 (09:22→17:43)
[2022-06-06] MEDS: METOPROLOL SUCCINATE 50MG ER TABLET PO SCH ×2 (09:22→20:31)
[2022-06-06] MEDS: AMLODIPINE 10MG TABLET PO SCH (09:22)
[2022-06-06] MEDS: DEXT 5%/0.45% NACL 1000ML 1,000 ML IV SCH (17:42)
[2022-06-06] MEDS: CEFTRIAXONE 2 G in DEXTROSE 5% WATER 50 ML IV SCH (17:42)
[2022-06-06 20:00] VITALS: BP 127/71
[2022-06-06] MEDS: ATORVASTATIN CALCIUM 10MG TABLET PO SCH (20:30)
[2022-06-06 22:13] LABS: CREATINE KINASE 36 IU/L (26-192)
[2022-06-07] VITALS: BP 132/67
[2022-06-07 04:00] VITALS: BP 124/68
[2022-06-07] MEDS: VANCOMYCIN 750MG PREMIX 150 ML IV SCH (05:29)
[2022-06-07] MEDS: BLOOD SUGAR DIAGNOSTIC STRIP TEST SCH ×4 (07:20→20:32)
[2022-06-07] MEDS: INSULIN LISPRO 100 UNITS/ML SUBCUT SCH ×4 (07:50→20:32)
[2022-06-07 08:00] VITALS: BP 124/64
[2022-06-07] MEDS: HYDROCODONE/ACETAMINOPHEN 10/325MG TABLET PO PRN ×3 (08:35→23:53)
[2022-06-07] MEDS: METOPROLOL SUCCINATE 50MG ER TABLET PO SCH ×2 (08:35→20:21)
[2022-06-07] MEDS: AMLODIPINE 10MG TABLET PO SCH (08:35)
[2022-06-07] MEDS: GABAPENTIN 100MG CAPSULE PO SCH ×3 (08:36→18:34)
[2022-06-07 12:00] VITALS: BP 127/67
[2022-06-07] MEDS: DEXT 5%/0.45% NACL 1000ML 1,000 ML IV SCH (13:13)
[2022-06-07 16:00] VITALS: BP 132/70
[2022-06-07] MEDS: CEFTRIAXONE 2 G in DEXTROSE 5% WATER 50 ML IV SCH (18:34)
[2022-06-07 20:00] VITALS: BP 124/74
[2022-06-07] MEDS: ATORVASTATIN CALCIUM 10MG TABLET PO SCH (20:22)
[2022-06-08] VITALS: BP 122/72
[2022-06-08] MEDS: HYDROCODONE/ACETAMINOPHEN 10/325MG TABLET PO PRN ×3 (03:29→21:55)
[2022-06-08] MEDS: INSULIN LISPRO 100 UNITS/ML SUBCUT SCH ×4 (06:15→21:00)
[2022-06-08] MEDS: BLOOD SUGAR DIAGNOSTIC STRIP TEST SCH ×4 (06:15→21:56)
[2022-06-08 08:00] VITALS: BP 112/73
[2022-06-08] MEDS: VANCOMYCIN 750MG PREMIX 150 ML IV SCH (08:54)
[2022-06-08] MEDS: METOPROLOL SUCCINATE 50MG ER TABLET PO SCH ×2 (08:54→21:56)
[2022-06-08] MEDS: DEXT 5%/0.45% NACL 1000ML 1,000 ML IV SCH (08:55)
[2022-06-08] MEDS: GABAPENTIN 100MG CAPSULE PO SCH ×3 (08:55→17:33)
[2022-06-08] MEDS: AMLODIPINE 10MG TABLET PO SCH (08:55)
[2022-06-08 12:00] VITALS: BP 117/69
[2022-06-08 16:00] VITALS: BP 108/98
[2022-06-08] MEDS ORDERED: NALOXONE HCL 0.4MG/ML VIAL IV PRN (16:45)
[2022-06-08] MEDS: CEFTRIAXONE 2 G in DEXTROSE 5% WATER 50 ML IV SCH (17:33)
[2022-06-08 20:00] VITALS: BP 119/74
[2022-06-08] MEDS: ATORVASTATIN CALCIUM 10MG TABLET PO SCH (21:53)
[2022-06-09] VITALS: BP 99/54
[2022-06-09 04:00] VITALS: BP 107/59
[2022-06-09] MEDS: VANCOMYCIN 750MG PREMIX 150 ML IV SCH (07:03)
[2022-06-09] MEDS: BLOOD SUGAR DIAGNOSTIC STRIP TEST SCH ×4 (07:04→20:36)
[2022-06-09] MEDS: INSULIN LISPRO 100 UNITS/ML SUBCUT SCH ×4 (07:50→20:36)
[2022-06-09 08:00] VITALS: BP 126/76
[2022-06-09] MEDS: HYDROCODONE/ACETAMINOPHEN 10/325MG TABLET PO PRN ×2 (09:18→20:35)
[2022-06-09] MEDS: GABAPENTIN 100MG CAPSULE PO SCH ×3 (09:18→18:23)
[2022-06-09] MEDS: AMLODIPINE 10MG TABLET PO SCH (09:19)
[2022-06-09] MEDS: METOPROLOL SUCCINATE 50MG ER TABLET PO SCH ×2 (09:19→20:34)
[2022-06-09 12:00] VITALS: BP 117/73
[2022-06-09 16:00] VITALS: BP 122/82
[2022-06-09] MEDS: CEFTRIAXONE 2 G in DEXTROSE 5% WATER 50 ML IV SCH (18:22)
[2022-06-09 20:00] VITALS: BP 135/85
[2022-06-09] MEDS: ATORVASTATIN CALCIUM 10MG TABLET PO SCH (20:26)
[2022-06-10] VITALS: BP 119/77
[2022-06-10 04:00] VITALS: BP 118/60
[2022-06-10] MEDS: INSULIN LISPRO 100 UNITS/ML SUBCUT SCH ×3 (07:50→17:50)
[2022-06-10 08:00] VITALS: BP 115/74
[2022-06-10] MEDS: BLOOD SUGAR DIAGNOSTIC STRIP TEST SCH ×3 (08:08→17:20)
[2022-06-10] MEDS: METOPROLOL SUCCINATE 50MG ER TABLET PO SCH (09:04)
[2022-06-10] MEDS: HYDROCODONE/ACETAMINOPHEN 10/325MG TABLET PO PRN (09:07)
[2022-06-10] MEDS: GABAPENTIN 100MG CAPSULE PO SCH ×2 (09:08→15:18)
[2022-06-10] MEDS: AMLODIPINE 10MG TABLET PO SCH (09:12)
[2022-06-10 12:00] VITALS: BP 117/75
[2022-06-10] MEDS ORDERED: VANCOMYCIN 750MG PREMIX 150 ML IV SCH (14:00)
[2022-06-10 16:00] VITALS: BP 121/78
[2022-06-10 18:14] VITALS: BP 121/71
== END 2022-06-10 19:30 | disposition home health service (06) | DRG 305 ==
LOC: ER 12:24 → EDBEDREQ 17:16 → ENRESERV 19:47 → 6EST 20:36
PROVIDERS: ADMIT Internal Medicine; ATTEND Internal Medicine
PROC: 0Y6N0ZC Detachment at Left Foot, Partial 3rd Ray, Open Approach (ICD-10-PCS; principal; 2022-06-03)
PROC: 0Y6N0ZD Detachment at Left Foot, Partial 4th Ray, Open Approach (ICD-10-PCS; 2022-06-03)
PROC: 0Y6N0ZF Detachment at Left Foot, Partial 5th Ray, Open Approach (ICD-10-PCS; 2022-06-03)
PROC: 0Y9N3ZZ Drainage of Left Foot, Percutaneous Approach (ICD-10-PCS; 2022-06-03)
PROC: 02HV33Z Insertion of Infusion Device into Superior Vena Cava, Percutaneous Approach (ICD-10-PCS; 2022-06-03)
PROC: B548ZZA Ultrasonography of Superior Vena Cava, Guidance (ICD-10-PCS; 2022-06-03)
PROC: B5181ZA Fluoroscopy of Superior Vena Cava using Low Osmolar Contrast, Guidance (ICD-10-PCS; 2022-06-03)
DX: E11.69 Type 2 diabetes mellitus with other specified complication (principal); A48.0 Gas gangrene; E44.0 Moderate protein-calorie malnutrition; M00.9 Pyogenic arthritis, unspecified; E11.52 Type 2 diabetes mellitus with diabetic peripheral angiopathy with gangrene; E87.8 Other disorders of electrolyte and fluid balance, not elsewhere classified; E11.621 Type 2 diabetes mellitus with foot ulcer; M86.172 Other acute osteomyelitis, left ankle and foot; D53.9 Nutritional anemia, unspecified; E87.1 Hypo-osmolality and hyponatremia; L97.529 Non-pressure chronic ulcer of other part of left foot with unspecified severity; Z20.822 Contact with and (suspected) exposure to COVID-19; E78.00 Pure hypercholesterolemia, unspecified; E87.6 Hypokalemia; I10 Essential (primary) hypertension; Z86.16 Personal history of COVID-19; Z82.49 Family history of ischemic heart disease and other diseases of the circulatory system; Z91.19 Patient's noncompliance with other medical treatment and regimen; Z89.422 Acquired absence of other left toe(s); Z88.0 Allergy status to penicillin; Z68.21 Body mass index [BMI] 21.0-21.9, adult
CPT/HCPCS: 36415; 36573; 73630; 73721; 80048; 80053; 80061; 80202; 82550; 82962; 83036; 83605; 84145; 85025; 85651; 87070; 87075; 87077; 87186; 87426; 88304; 88311; 93923; 97116; 97162; 97164; 97760; 99285; C1725; J0690; J0696; J1170; J1580; J1815; J2250; J2543; J2704; J3010; J3370; J3490; J7060

== ENCOUNTER 2022-06-13 08:06 | Emergency (ER) | payer MEDICAID ==
[~2022-06-13] VITALS: Ht 157.5 cm; Wt 70.0 kg
[2022-06-13 08:22] VITALS: BP 104/72
[2022-06-13] MEDS ORDERED: LIDOCAINE HCL 1% 50ML VIAL (10MG/ML) ONE (08:39)
[2022-06-13 10:03] LABS: EOSINOPHILS % 4.3 % (0.0-5.0); HEMATOCRIT. 28.1 % (36.0-48.0); HEMOGLOBIN. 9.3 g/dL (12.0-16.0); LYMPHOCYTES % 37.3 % (20.0-50.0); MEAN CORPUSCULAR HEMOGLOBIN 33.5 pg (28.0-32.0); MEAN CORPUSCULAR VOLUME 101.6 fL (81.0-99.0); MEAN PLATELET VOLUME 7.4 fl (7.4-10.4); NEUTROPHILS % 51.4 % (40.0-76.0); PLATELET 327 x1000/uL (130-400); RED BLOOD CELL COUNT 2.77 mill/uL (4.2-5.4); RED CELL DISTRIBUTION WIDTH 13.8 % (11.6-14.6)
[2022-06-13 10:08] LABS: CHLORIDE 106 mEq/L (98-107)
[2022-06-13 10:11] LABS: INR 1.1
== END 2022-06-13 12:37 | disposition home or self-care (01) ==
LOC: ER 08:06
DX: T82.524A Displacement of infusion catheter, initial encounter (principal); I10 Essential (primary) hypertension; E11.9 Type 2 diabetes mellitus without complications; E78.00 Pure hypercholesterolemia, unspecified; Y83.8 Other surgical procedures as the cause of abnormal reaction of the patient, or of later complication, without mention of misadventure at the time of the procedure; Y92.9 Unspecified place or not applicable; Z88.0 Allergy status to penicillin; Z93.0 Tracheostomy status; Z89.422 Acquired absence of other left toe(s); Z20.822 Contact with and (suspected) exposure to COVID-19
CPT/HCPCS: 36415; 36573; 71045; 80053; 85025; 85610; 87426; 99284; C1725; C9803; J3490